=== PATIENT | female | born 1985 ===

== ENCOUNTER 2016-03-30 10:04 | Emergency (ER) | payer MEDICAID ==
[2016-03-30 10:54] VITALS: BP 141/81
--- NOTE | 2016-03-30 12:26 | ERNOTE ---
Integumentary HPI - Narrative Date of Service: 03/30/16 - General Presenting Symptoms: other - cellulitis Time Seen by Provider: 03/30/16 12:12 Source: patient Exam Limitations: no limitations - Immun/Allergies/Home Medications Immunizations: IMMUNIZATION HX Immunizations Up to Date Yes History of Influenza Vaccine No Hx Pneumococcal Vaccination No Allergies/Adverse Reactions: Allergies Allergy/AdvReac Type Severity Reaction Status Date / Time No Known Allergies Allergy Verified 10/19/13 08:40 Home Medications: HOME MEDICATIONS Citalopram Hydrobromide [Celexa] 20 mg PO DAILY 10/19/13 [Last Taken Unknown] Sulfamethoxazole/Trimethoprim [Bactrim] 04/30/15 [Last Taken Unknown] Amoxicillin Trihydrate [Amoxil] 500 mg PO Q8H #21 capsule 05/01/15 [Last Taken Unknown] Naproxen [Naprosyn] 500 mg PO BID PRN #60 tab 03/30/16 [Last Taken Unknown] Sulfamethoxazole/Trimethoprim [Bactrim Ds] 1 tab PO BID #28 tab 03/30/16 [Last Taken Unknown] - History of Present Illness Narrative: Pt. comes in with c/o R third toe swelling and redness for 24 hours. Pt. denies any fever, numbness, tingling, or recent injury. Pt. does state that she has been recently treated for athletes foot using antifungal cream without improvement in symptoms. In fact pt. states that her skin is cracking more recent. Review of Systems - Review of Systems Constitutional: Present: no symptoms reported. Absent: fever, chills, weakness , fatigue, malaise EYE: Present: no symptoms reported ENT: Present: no symptoms reported Respiratory: Present: no symptoms reported. Absent: shortness of breath, cough , wheezing Cardiology: Present: no symptoms reported. Absent: chest pain, palpitations, edema Gastrointestinal/Abdominal: Present: no symptoms reported. Absent: nausea, vomiting, diarrhea Genitourinary: Present: no symptoms reported Musculoskeletal: Present: joint pain - R send toe Skin: Present: no symptoms reported. Absent: rash, change in color, change in hair/nails Neurological: Present: no symptoms reported. Absent: headache, dizziness/light- headedness, numbness, tingling All Other Systems: All systems neg except as marked - Patient's Past Medical History Patient History - Medical: Depression Patient History - Cancer: No Hx of Cancer Patient History - Surgical Procedures: , D & C - Social History Living Situations: home Smoking Status: Current every day smoker Have you smoked in the past 12 months: Yes Alcohol Use: none Drug Use: none Physical Exam - Physical Exam General Appearance: Present: wd/wn, alert, no apparent distress Eye Exam: Normal inspection: bilateral, PERRL: bilateral, EOMI: bilateral Respiratory: Present: no respiratory distress, normal breath sounds, no accessory muscle use, chest nontender, lungs clear Cardiovascular/Chest: Present: regular rate, rhythm, no murmur, normal peripheral pulses Back Exam: Present: normal inspection, normal range of motion, no CVA tenderness , no vertebral tenderness Extremity Exam: Present: normal range of motion, joint redness - R second toe, joint swelling - R second toe Neurological Exam: Present: alert, oriented, normal mood/affect, no motor/ sensory deficits Skin Exam: Present: other - cracked fungated appearance to R second toe ED Progress - Results and Orders Patient's Lab Results:: I have reviewed the patient's lab results. - Vital Signs Patient's Vital Signs:: I have reviewed the patient's vital signs. Vital Signs: Vital Signs 03/30/16 10:50 Temperature 36.6 C Pulse Rate 103 H Respiratory 16 Rate Blood Pressure 141/81 O2 Sat by Pulse 99 Oximetry - Progress/Reassessment Chief Complaint: Cellulitis Progress:: Unchanged Departure Clinical Impression: Athlete's foot on right, Cellulitis and abscess of foot - Departure Disposition: Home self-care Condition: Good Instructions: Cellulitis, Adult, [id number], Athlete's Foot, [id number] Additional Instructions: Please follow up with primary provider in 2-3 days. Soak foot in 1 capful of betadine with water for 10 minutes twice a day and dry thoroughly and apply antifungal cream. Wear socks at all times. Prescriptions: Naproxen [Naprosyn] 500 mg PO BID PRN #60 tab PRN Reason: Pain Sulfamethoxazole/Trimethoprim [Bactrim Ds] 1 tab PO BID #28 tab
[2016-03-30 12:34] LABS: Hematocrit 42.6 % (37.0-47.0); Hemoglobin 14.4 gm/dL (12.5-16.0); Mean Cell Volume 91.8 fl (78-100); Mean Corpuscular Hgb Conc 33.8 g/dl (32-36); Mean Platelet Volume 8.9 fl (6.0-9.5); Neutrophil # 7.4 K/mm3 (1.3-6.0); Neutrophil % 71.5 % (42-75.0); Platelet Count 293 K/mm3 (150-450); Red Blood Count 4.64 M/mm3 (4.2-5.4); Red Cell Distribution Width 12.5 % (11.5-14.0); White Blood Count 10.4 K/mm3 (4.0-10.5)
[2016-03-30 12:48] LABS: Albumin * 3.8 gm/dl (3.4-5.0); Anion Gap 11.2 mmol/L (6.8-13.8); BUN/Creatinine Ratio 21.4 (9.0-21.6); Bilirubin, Total 0.2 mg/dL (0.0-1.1); CRP 0.4 mg/dL (0.0-0.9); Calcium * 9.2 mg/dL (7.9-10.9); Carbon Dioxide 30.5 mmol/L (24-32.6); Potassium 3.7 mmol/L (3.4-4.6); Total Protein 8.2 gm/dL (6.2-8.2); Uric Acid 4.4 mg/dL (2.6-7.2)
== END 2016-03-30 13:29 | disposition home or self-care (01) ==
LOC: ER 10:04
DX: B35.3 Tinea pedis (principal); L03.031 Cellulitis of right toe; L02.611 Cutaneous abscess of right foot; F17.210 Nicotine dependence, cigarettes, uncomplicated